=== PATIENT | male | born 1965 | race Caucasian/White ===

== ENCOUNTER 2019-01-10 12:33 | Day surgery (SDC) | payer BC ==
[~2019-01-10] VITALS: Ht 185.4 cm; Wt 101.9 kg
[2019-01-10] MEDS ORDERED: BENAZEPRIL (13:24)
[2019-01-10] MEDS ORDERED: TYLENOL (13:24)
[2019-01-10 13:25] VITALS: Ht 185.4 cm; Wt 101.9 kg
[2019-01-10 13:32] VITALS: BP 115/73; PULSE 84; RESP 18
--- NOTE | 2019-01-10 13:34 | HPN ---
Date/Time of Note Date/Time of Note DATE: 01/10/19 TIME: 13:34 Interval H&P Admission Note Pt. seen H&P reviewed: No system changes DIANA VENTURA Jan 10, 2019 13:34
[2019-01-10 14:27] VITALS: BP 110/60; PULSE 74; RESP 16
[2019-01-10] MEDS ORDERED: FENTAnyl 50 MCG/ML VIAL ONE (14:46)
[2019-01-10] MEDS ORDERED: MIDAZOLAM 1 MG/ML 2 ML INJ ONE ×3 (14:46)
== END 2019-01-10 16:15 | disposition home or self-care (01) ==
LOC: GIL 12:33
PROVIDERS: ATTEND Internal Medicine Gastroenterology
DX: Z12.11 Encounter for screening for malignant neoplasm of colon (principal); C18.9 Malignant neoplasm of colon, unspecified; I10 Essential (primary) hypertension
CPT/HCPCS: 45331; 88305; J2250; J3010; Z7610